=== PATIENT | male | born 1950 | race Caucasian/White ===

== ENCOUNTER 2023-12-24 10:06 | Emergency (ER) | payer MEDICARE, OTHER, SELFPAY ==
[2023-12-24 10:21] VITALS: BP 138/82; PULSE 77; TEMP 36.7; O2SAT 100; BMI 20.4
--- NOTE | 2023-12-24 10:41 | CT_ITS ---
The [address] [address] Patient Name: TONIE OBANDO MRN: [id number] date: 1950 Sex: M Assigned Patient Location: ER Current Patient Location: ER Accession/Order Number: [id number] Exam Date: 12/24/2023 10:52 Report Date: 12/24/2023 11:47 At the request of: MARYELLEN PARRISH Procedure: CT abdomen pelvis wo con EXAM: CT abdomen pelvis wo con HISTORY: Right flank pain, rule out stone COMPARISON: None. TECHNIQUE: CT abdomen pelvis wo con FINDINGS: LOWER CHEST: LUNG BASES / PLEURA: Normal. DISTAL ESOPHAGUS: Normal. HEART / VESSELS: No significant abnormality. ABDOMEN and PELVIS: LIVER: Subcentimeter hepatic cyst in the dome. No significant abnormality given the limitations of noncontrast CT. BILIARY TRACT: Normal. GALLBLADDER: No abnormality. PANCREAS: Normal. SPLEEN: Normal. Of note, the superior most aspect of the spleen is not included in the [id number]. ADRENALS: Normal. KIDNEYS: Multiple small bilateral nonobstructing renal stones. No hydroureteronephrosis. No ureteral stone. LYMPH NODES: None enlarged. STOMACH / SMALL BOWEL: No abnormality. COLON / APPENDIX: No abnormality. PERITONEUM / MESENTERY: Normal. No free fluid or air. RETROPERITONEUM: Normal. VESSELS: No significant abnormality. URINARY BLADDER: Diffuse urinary bladder wall thickening with adjacent fat stranding. Small outpouching from the right lateral urinary bladder wall, likely a small nondistended diverticulum. REPRODUCTIVE ORGANS: Prostatomegaly. BODY WALL: Partially visualized sternotomy scar. MUSCULOSKELETAL: No acute abnormality. Degenerative disc height loss and associated discogenic vertebral endplate change at L5-S1. Mild degenerative arthrosis of both hips. CT/CT abdomen pelvis wo con IMPRESSION: 1. Multiple bilateral nonobstructing renal stones. No obstructing stone or hydronephrosis. 2. Circumferential urinary bladder wall thickening with adjacent fat stranding. Correlate with urinalysis to assess for cystitis. 3. Prostatomegaly. Electronically authenticated by: SUKHI CHANCE Date: 12/24/2023 11:47
--- NOTE | 2023-12-24 10:41 | ED_ITS ---
HPI HPI - General Adult General Chief complaint: Back Pain/Injury Stated complaint: LOWER BACK PAIN, CLINIC REFERRAL Time Seen by Provider: 12/24/23 10:10 Source: patient and family Mode of arrival: walk-in Limitations: no limitations History of Present Illness HPI narrative: 73-year-old male presents to the emergency department for right flank pain. He has had it for a week and has had a kidney stone in the past. He has had no gross hematuria or cloudiness to his urine or injury. The pain is moderate and seems to be continuous now. It radiates into his right groin. Related Data Allergies Allergy/AdvReac Type Severity Reaction Status Date / Time No Known Drug Allergies Allergy Verified 12/24/23 10:26 Opioid HPI Opioid Management Most Recent Opioid Data: No Data to Display Review of Systems ROS Narrative A ten point review of systems is negative except as noted above. PFSH PFSH Social History Little interest or pleasure in doing things: several days Feeling down, depressed, or hopeless: several days Exam Narrative Exam Narrative: Nurses note and vital signs reviewed and patient is not hypoxic. General: The patient appears well and in no apparent distress. Patient is resting comfortably on cart, sitting upright. Skin: Warm, dry, no pallor noted. There is no rash noted. Head: Normocephalic, atraumatic Eye: Normal conjunctiva, no drainage Ears, Nose, Mouth, and Throat: oral mucosa is moist. Nares patent. Cardiovascular: Regular Rate and Rhythm Respiratory: Patient is in no distress, no accessory muscle use, lungs are clear to auscultation, no wheezing, rales or rhonchi Back: non-tender, no CVA tenderness bilaterally to percussion. No bruise or rash present. GI: Soft and nontender Musculoskeletal: The patient has no evidence of calf tenderness, no pitting edema, symmetrical pulses noted bilaterally Neurological: Awake and alert Psychiatric: Cooperative Constitutional Vital Signs, click to edit/add: Last Vital Signs Temp 98.1 F 12/24/23 10:21 Pulse 77 12/24/23 10:21 Resp 18 12/24/23 10:21 BP 138/82 12/24/23 10:21 Pulse Ox 100 12/24/23 10:21 O2 Del Method Room Air 12/24/23 10:21 Course Vital Signs Vital signs: Vital Signs Temperature 98.1 F 12/24/23 10:21 Pulse Rate 77 12/24/23 10:21 Respiratory Rate 18 12/24/23 10:21 Blood Pressure 138/82 12/24/23 10:21 Pulse Oximetry 100 12/24/23 10:21 Oxygen Delivery Method Room Air 12/24/23 10:21 Temperature 98.1 F 12/24/23 10:21 Pulse Rate 77 12/24/23 10:21 Respiratory Rate 18 12/24/23 10:21 Blood Pressure 138/82 12/24/23 10:21 Pulse Oximetry 100 12/24/23 10:21 Oxygen Delivery Method Room Air 12/24/23 10:21 Medical Decision Making MDM Narrative Medical decision making narrative: CT scan shows bilateral nonobstructing intrarenal stones and the rest of his workup is negative. He does recall hanging a large piece of drywall shortly before his symptoms started. He was recommended ibuprofen. Treatment diagnosis and follow-up were discussed with the patient. Differential Diagnosis Differential Diagnosis: Kidney stone, UTI, muscle strain Lab Data Lab results reviewed: Yes I reviewed the patient's lab results Labs: Lab Results 12/24/23 12/24/23 Range/Units 10:35 10:45 WBC 7.2 (4.0-11.0) 10^3/uL RBC 5.40 (4.70-6.10) 10^6/uL Hgb 16.6 (14.0-18.0) g/dL Hct 48.5 (42.0-54.0) % MCV 89.8 (80.0-94.0) fL MCH 30.7 (25.9-34.0) pg MCHC 34.2 (29.9-35.2) g/dL RDW 12.2 (11.0-15.0) % Plt Count 188 (150-450) 10^3/uL MPV 10.6 (9.5-13.5) fL Neut % (Auto) 73.8 (43.0-75.0) % Lymph % (Auto) 16.4 L (20.5-60.0) % [place] % (Auto) 7.7 (1.7-12.0) % Eos % (Auto) 1.1 (0.9-7.0) % Baso % (Auto) 0.7 (0.2-2.0) % Neut # (Auto) 5.3 (1.4-6.5) 10^3/uL Lymph # (Auto) 1.2 (1.2-3.8) 10^3/uL [place] # (Auto) 0.6 (0.3-0.8) 10^3/uL Eos # (Auto) 0.1 (0.0-0.7) 10^3/uL Baso # (Auto) 0.1 (0.0-0.1) 10^3/uL Abs Immat Gran (auto) 0.02 (0.00-0.03) 10^3/uL Imm/Tot Granulo (auto) 0.3 (0.0-0.5) % Sodium 136 (136-145) mmol/L Potassium 4.3 (3.5-5.1) mmol/L Chloride 100 (98-107) mmol/L Carbon Dioxide 32.5 H (21.0-32.0) mmol/L Anion Gap 7.8 BUN 20.0 H (7.0-18.0) mg/dL Creatinine 0.89 (0.70-1.30) mg/dL Est GFR ( Amer) >60 (>=60) Est GFR (Non-Af Amer) >60 (>=60) BUN/Creatinine Ratio 22.5 Glucose 99 (74-106) mg/dL Calcium 9.6 (8.5-10.1) mg/dL Urine Color Yellow (YELLOW) Urine Clarity Clear (CLEAR) Urine pH 6.0 (5.0-9.0) Ur Specific [place] 1.020 (1.005-1.025) Urine Protein Negative (NEG/TRACE) mg/dL Urine Glucose (UA) Negative (NEGATIVE) mg/dL Urine Ketones Negative (NEGATIVE) mg/dL Urine Occult Blood Trace-i (NEGATIVE) Urine Nitrite Negative (NEGATIVE) Urine Bilirubin Negative (NEGATIVE) Urine Urobilinogen 0.2 (0.2-1.0) EU/dL Ur Leukocyte Esterase Negative (NEGATIVE) Urine RBC 0-2 (0-2) #/HPF Urine WBC None seen (NONE SEEN) #/HPF Ur Squamous Epith Cells Rare (NONE/RARE) #/LPF Urine Bacteria None seen (NONE SEEN) #/HPF Urine Mucus None seen (NONE SEEN) Urine Sperm Seen Imaging Data CT scan - abdomen: Radiologist's impression: ITS Impressions Abdomen/Pelvis CT 12/24/23 10:41 IMPRESSION: 1. Multiple bilateral nonobstructing renal stones. No obstructing stone or hydronephrosis. 2. Circumferential urinary bladder wall thickening with adjacent fat stranding. Correlate with urinalysis to assess for cystitis. 3. Prostatomegaly. Electronically authenticated by: SUKHI CHANCE Date: 12/24/2023 11:47 Discharge Plan Discharge Chief Complaint: Back Pain/Injury Clinical Impression: Strain of lumbar region Patient Disposition: Home, Self-Care Time of Disposition Decision: 11:56 Condition: Good Mode of Transportation: Private Vehicle Print Language: Yakut Instructions: Back Pain (ED) Referrals: ERON MALDONADO [Primary Care Provider] - 1 week
[2023-12-24 10:59] LABS: Basophils Absolute Auto 0.1 10^3/uL (0.0-0.1); Basophils Percent Auto 0.7 % (0.2-2.0); Eosinophils Absolute Auto 0.1 10^3/uL (0.0-0.7); Eosinophils Percent Auto 1.1 % (0.9-7.0); Hematocrit 48.5 % (42.0-54.0); Hemoglobin 16.6 g/dL (14.0-18.0); Immature Granulocytes Abs Auto 0.02 10^3/uL (0.00-0.03); Immature Granulocytes Pct Auto 0.3 % (0.0-0.5); Lymphocytes Absolute Auto 1.2 10^3/uL (1.2-3.8); Lymphocytes Percent Auto 16.4 % (20.5-60.0); Mean Corpuscular HGB Conc 34.2 g/dL (29.9-35.2); Mean Corpuscular Hemoglobin 30.7 pg (25.9-34.0); Mean Corpuscular Volume 89.8 fL (80.0-94.0); Mean Platelet Volume 10.6 fL (9.5-13.5); Monocytes Absolute Auto 0.6 10^3/uL (0.3-0.8); Monocytes Percent Auto 7.7 % (1.7-12.0); Neutrophils Absolute Auto 5.3 10^3/uL (1.4-6.5); Neutrophils Percent Auto 73.8 % (43.0-75.0); Platelet Count 188 10^3/uL (150-450); Red Cell Distribution Width 12.2 % (11.0-15.0); White Blood Count 7.2 10^3/uL (4.0-11.0)
[2023-12-24 10:59] LABS: Bilirubin Urine NEGATIVE (NEGATIVE); Blood Urine TRACE-I (NEGATIVE); Clarity Urine CLEAR (CLEAR); Color Urine YELLOW (YELLOW); Glucose Urine UA NEGATIVE (NEGATIVE); Ketones Urine NEGATIVE (NEGATIVE); Leukocyte Esterase Urine NEGATIVE (NEGATIVE); Nitrite Urine NEGATIVE (NEGATIVE); Protein Urine NEGATIVE (NEG/TRACE); Urobilinogen Urine 0.2 EU/dL (0.2-1.0)
[2023-12-24 11:06] LABS: Anion Gap 7.8; BUN Creatinine Ratio 22.5; Calcium 9.6 mg/dL (8.5-10.1); Carbon Dioxide 32.5 mmol/L (21.0-32.0); Chloride 100 mmol/L (98-107); Estimated GFR (African America >60 (>=60); Estimated GFR (Non-African Ame >60 (>=60); Glucose 99 mg/dL (74-106); Potassium 4.3 mmol/L (3.5-5.1); Sodium 136 mmol/L (136-145)
[2023-12-24 11:09] LABS: Bacteria Urine NONE SEEN #/HPF (NONE SEEN); RBC Urine 0-2 #/HPF (0-2); WBC Urine NONE SEEN #/HPF (NONE SEEN)
[2023-12-24 11:10] LABS: Mucus Urine NONE SEEN (NONE SEEN); Sperm Urine SEEN; Squamous Epithelial Cell Urine RARE #/LPF (NONE/RARE)
== END 2023-12-24 12:03 | disposition home or self-care (01) ==
PROVIDERS: Emergency Provider Emergency Medicine; PCP Family Medicine
DX: S39.012A Strain of muscle, fascia and tendon of lower back, initial encounter (principal); Z87.442 Personal history of urinary calculi; X58.XXXA Exposure to other specified factors, initial encounter
CPT/HCPCS: 36415; 74176; 80048; 81001; 85025; 99284